=== PATIENT | male | born 1960 | race Caucasian/White ===

== ENCOUNTER 2019-11-21 18:50 | Emergency (ER) | payer SELFPAY ==
[2019-11-21] MEDS ORDERED: IBUPROFEN 800 MG TABLET PO ONE (19:03)
--- NOTE | 2019-11-21 19:10 | ER Document Report ---
ED Fall - General Chief Complaint: Wrist Injury Stated Complaint: FALL/WRIST INJURY Time Seen by Provider: 11/21/19 18:57 Primary Care Provider: IVELISSE,NO [NO LOCAL MD] - Follow up as needed GREGOR SMITH JR, DO [ACTIVE PROVISIONAL STAFF] - Follow up as needed Mode of Arrival: Ambulatory Information source: Patient Notes: 59-year-old male presented to ED for fall about 5 or 530 tonight. He states he was carrying a carpet into the house when he turned against the storm door with his left shoulder and then fell onto his outstretched hand injuring his shoulder and his hand. 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 He said he is having a lot of pain to his left wrist and some pain to the shoulder. - HPI Occurred: This evening Where: Work Context: Slipped Associated symptoms: None Location of injury/pain: Shoulder, Wrist Quality of pain: Achy Severity: Moderate Pain Level: 2 - Related data Allergies/Adverse Reactions: No Known Allergies Allergy (Unverified 11/21/19 19:02) Past Medical History - General Information source: Patient - Social History Smoking Status: Never Smoker Frequency of alcohol use: None Drug Abuse: None Occupation: Construction Lives with: Alone Family History: Reviewed & Not Pertinent Patient has suicidal ideation: No Patient has homicidal ideation: No - Past Medical History Cardiac Medical History: Reports: None Pulmonary Medical History: Reports: None EENT Medical History: Reports: None Neurological Medical History: Reports: None Endocrine Medical History: Reports: None Renal/ Medical History: Reports: None Malignancy Medical History: Reports None GI Medical History: Reports: None Musculoskeletal Medical History: Reports Hx Musculoskeletal Deformity, Reports Hx Musculoskeletal Trauma Skin Medical History: Reports None Psychiatric Medical History: Reports: None Traumatic Medical History: Reports: Hx Fractures Infectious Medical History: Reports: None Past Surgical History: Reports: Hx Inguinal Hernia - Right, Hx Orthopedic Surgery - Immunizations Immunizations up to date: Yes Review of Systems - Review of Systems Constitutional: No symptoms reported EENT: No symptoms reported Cardiovascular: No symptoms reported Respiratory: No symptoms reported Gastrointestinal: No symptoms reported Genitourinary: No symptoms reported Male Genitourinary: No symptoms reported Musculoskeletal: Joint pain - Left wrist and child shoulder, Muscle pain, Muscle stiffness Skin: No symptoms reported Hematologic/Lymphatic: No symptoms reported Neurological/Psychological: No symptoms reported -: Yes All other systems reviewed and negative Physical Exam - Vital signs Vitals: Temp Pulse Resp BP Pulse Ox 99.1 F 60 16 136/76 H 97 11/21/19 18:57 11/21/19 18:57 11/21/19 18:57 11/21/19 18:57 11/21/19 18:57 Interpretation: Normal - General General appearance: Appears well, Alert - HEENT Head: Normocephalic, Atraumatic Eyes: Normal Pupils: PERRL - Respiratory Respiratory status: No respiratory distress Chest status: Nontender Breath sounds: Normal Chest palpation: Normal - Cardiovascular Rhythm: Regular Heart sounds: Normal auscultation Murmur: No - Abdominal Inspection: Normal Distension: No distension Bowel sounds: Normal Tenderness: Nontender Organomegaly: No organomegaly - Back Back: Normal, Nontender - Extremities General upper extremity: Normal color, Normal temperature General lower extremity: Normal inspection, Nontender, Normal color, Normal ROM, Normal temperature, Normal weight bearing. No: Treva's sign Shoulder: Tender Wrist: Tender, Limited ROM - Due to discomfort. No: Abrasion, Axial load of thumb pain, Deformity, Dislocation, Ecchymosis, Instability, Laceration, Navicular tenderness - Neurological Neuro grossly intact: Yes Cognition: Normal Orientation: AAOx4 [place] Coma Scale Eye Opening: Spontaneous [place] Coma Scale Verbal: Oriented [place] Coma Scale Motor: Obeys Commands [place] Coma Scale Total: 15 Speech: Normal Motor strength normal: LUE, RUE, LLE, RLE Sensory: Normal - Psychological Associated symptoms: Normal affect, Normal mood - Skin Skin Temperature: Warm Skin Moisture: Dry Skin Color: Normal Course - Re-evaluation Re-evalutation: 11/21/19 20:21 Patient was treated with a cock-up splint for his pain to his left wrist. There was no fractures noted on the x-rays. Patient was instructed to please follow- up with orthopedics if he continued having pain. Otherwise follow-up with his primary care doctor. Patient was able to verbalize understanding and agreement with treatment plan and patient was discharged home. - Vital Signs Vital signs: Temp Pulse Resp BP Pulse Ox 98.4 F 57 L 18 146/81 H 100 11/21/19 20:04 11/21/19 20:04 11/21/19 20:04 11/21/19 20:04 11/21/19 20:04 - Diagnostic Test Radiology reviewed: Image reviewed, Reports reviewed Procedures - Immobilization Left Wrist Time completed: 20:19 Immobilizer type: Cock-up Performed by: PAVITHRA Post-Proc Neuro Vasc Exam: Normal Alignment checked and good: Yes Discharge - Discharge Clinical Impression: Left wrist sprain Qualifiers: Encounter type: initial encounter Qualified Code(s): S63.502A - Unspecified sprain of left wrist, initial encounter Fall Qualifiers: Encounter type: initial encounter Qualified Code(s): W19.XXXA - Unspecified fall, initial encounter Contusion of left shoulder Qualifiers: Encounter type: initial encounter Qualified Code(s): S40.012A - Contusion of left shoulder, initial encounter Condition: Stable Disposition: HOME, SELF-CARE Additional Instructions: SPRAIN: Your injury is a sprain. A sprain results from stretching or tearing of the ligaments, usually from a twisting injury. The ligaments will require time and protection in order to heal properly. Many sprains are quite disabling and should be taken seriously. The usual initial treatment of sprains is cold packs, elevation, and rest of the injured area. Your physician has assessed the seriousness of your ligament injury, and has outlined a treatment plan. Understand that this treatment may change, depending on how you progress. If a re-examination was recommended, it is important that you follow up as instructed. Call the doctor any time if there is severe pain, numbness, or loss of function in the injured area. SPLINT PRECAUTIONS: A splint has been placed. This will protect the area while healing begins. Your problem does NOT normally require a cast. It MUST, however, be held still! Keep the splint on ALL THE TIME until instructed to remove it by the doctor. As you begin to use the area, be careful. You shouldn't do anything which causes discomfort -- you may disturb the injury even with the splint in place. After the initial period of rest and elevation, if splint does not prevent pain when you move, come back. You may require placement of a different splint, or a cast. If there is unexpected severe pain, or numbness, discoloration, or swelling beyond the splint, you should return at once. If you feel that the splint has broken or become loose, come back. ICE & ELEVATION: Apply ice packs frequently against the painful area. Many different schedules are recommended, such as "20 minutes on, 20 minutes off" or "one hour ice, two hours rest." If you need to work, you may need to go longer between ice treatments. You should plan to have the area ice packed AT LEAST one-fourth of the time. The ice should be applied over the wrap, tape, or splint, or over a layer of cloth -- not directly against the skin. Some ice bags have a built-in cloth and can be put directly on the skin. Your injured part should be elevated as much as possible over the next 48 hours. Try to keep the injury above the level of the heart. Avoid use of the injured area. Elevation and rest will decrease the swelling. USE OF VZXR-WMA-NZGRANP IBUPROFEN: Ibuprofen (Advil, Nuprin, Medipren, Motrin IB) is a medication for fever and pain control. In addition, it has anti- inflammatory effects which may be beneficial, especially in the treatment of injuries. It's best to take ibuprofen with food. Persons with ulcer disease or allergy to aspirin should notify their physician of this before taking ibuprofen. Ibuprofen can be given every four to six hours, for a total of four doses daily. Age Pain or fever dose Antiinflammatory dose 6-8 yr 200 mg (1 tab) 200 mg (1 tab) 9-11 yr 200 mg (1 tab) 200-400 mg (1-2 tab) 11-14 yr 200-400 mg (1-2 tab) 400 mg (2 tab) 15-adult 400 mg (2 tab) 600 mg (3 tab) FOLLOW-UP CARE: If you have been referred to a physician for follow-up care, call the physicians office for an appointment as you were instructed or within the next two days. If you experience worsening or a significant change in your symptoms, notify the physician immediately or return to the Emergency Department at any time for re-evaluation. Forms: Elevated Blood Pressure Referrals: IVELISSE,NO [NO LOCAL MD] - Follow up as needed GREGOR SMITH JR, DO [ACTIVE PROVISIONAL STAFF] - Follow up as needed
--- NOTE | 2019-11-21 19:34 | RADIOLOGY REPORT (SQ) ---
EXAM DESCRIPTION: SHOULDER LEFT 2 OR MORE VIEWS IMAGES COMPLETED DATE/TIME: 11/21/2019 7:24 pm REASON FOR STUDY: Fall injury left wrist and shoulder COMPARISON: None. NUMBER OF VIEWS: Three views. TECHNIQUE: Internal rotation, external rotation, and Y view images acquired of the left shoulder. LIMITATIONS: None. FINDINGS: MINERALIZATION: Normal. BONES: No acute fracture. No worrisome bone lesions. JOINTS: No dislocation. VISUALIZED LUNGS AND RIBS: No pneumothorax. No rib fracture. SOFT TISSUES: No radiopaque foreign body. OTHER: No other significant finding. IMPRESSION: NEGATIVE STUDY OF THE LEFT SHOULDER. NO RADIOGRAPHIC EVIDENCE OF ACUTE INJURY. TECHNICAL DOCUMENTATION: JOB ID: [id number] 2010 [employer]- All Rights Reserved Reading location - IP/workstation name: [email or web address]
--- NOTE | 2019-11-21 19:35 | RADIOLOGY REPORT (SQ) ---
EXAM DESCRIPTION: WRIST LEFT 3 VIEWS IMAGES COMPLETED DATE/TIME: 11/21/2019 7:24 pm REASON FOR STUDY: Fall injury left wrist and shoulder COMPARISON: None. NUMBER OF VIEWS: Three views. TECHNIQUE: AP, lateral, and oblique radiographic images acquired of the left wrist. LIMITATIONS: None. FINDINGS: MINERALIZATION: Normal. BONES: No acute fracture or dislocation. No worrisome bone lesions. Normal alignment. SOFT TISSUES: No soft tissue swelling. No foreign body. OTHER: No other significant finding. IMPRESSION: NEGATIVE STUDY OF THE LEFT WRIST. NO RADIOGRAPHIC EVIDENCE OF ACUTE INJURY. TECHNICAL DOCUMENTATION: JOB ID: [id number] 2010 [employer]- All Rights Reserved Reading location - IP/workstation name: [email or web address]
[2019-11-21 20:07] VITALS: BP 146/81
== END 2019-11-21 20:21 | disposition home or self-care (01) ==
LOC: ER 18:50
DX: S63.502A Unspecified sprain of left wrist, initial encounter (principal); S40.012A Contusion of left shoulder, initial encounter; M25.512 Pain in left shoulder; M25.532 Pain in left wrist; M79.10 Myalgia, unspecified site; W19.XXXA Unspecified fall, initial encounter
CPT/HCPCS: 99283